=== PATIENT | male | born 1935 | race Caucasian/White ===

== ENCOUNTER 2016-08-28 08:38 | Outpatient (CLI) ==
[2013-04-18 17:10] VITALS: BMI 26.9
[2016-08-28 15:35] LABS: BASOPHILS # (AUTO) 0.1 K/uL (0-0.2); BASOPHILS % (AUTO) 1.3 % (0.0-3.0); EOSINOPHILS # (AUTO) 0.3 K/ul (0.0-0.7); EOSINOPHILS % (AUTO) 5.3 % (0.0-7.0); HEMATOCRIT 47.3 % (42.0-52.0); HEMOGLOBIN 16.1 g/dl (14.0-18.0); IMMATURE GRANULOCYTE % (AUTO) 0.4 % (0.0-5.0); LYMPHOCYTES # (AUTO) 1.8 K/uL (0.60-3.4); LYMPHOCYTES % (AUTO) 34.7 (10.0-50.0); MEAN CORPUSCULAR HEMOGLOBIN 30.3 pg (27.0-31.0); MEAN CORPUSCULAR VOLUME 88.9 fl (80.0-94.0); MONOCYTES # (AUTO) 0.5 K/uL (0.4-2.0); MONOCYTES % (AUTO) 8.9 (0-10); NEUTROPHILS # (AUTO) 2.6 K/ul (2.0-6.9); NEUTROPHILS % (AUTO) 49.4; PLATELET COUNT 253 10^3/uL (140-440); RED BLOOD COUNT 5.32 10^6/ul (4.70-6.10); WHITE BLOOD COUNT 5.27 K/ul (4.2-10.2)
[2016-08-28 15:44] LABS: BILIRUBIN,URINE Negative (NEGATIVE); KETONES,URINE Negative (NEGATIVE); LEUKOCYTE ESTERASE ,URINE Negative (NEGATIVE); NITRITE,URINE Negative (NEGATIVE); PH,URINE 5.5 (5-9); PROTEIN,URINE Negative (NEGATIVE); URINE, BLOOD Trace-lysed (NEGATIVE)
[2016-08-28 16:04] LABS: ADD URINE MICROSCOPIC YES
[2016-08-28 16:09] LABS: ALBUMIN 4.7 g/dL (3.4-5.0); ALBUMIN/GLOBULIN RATIO 1.42; ANION GAP 18.2; BILIRUBIN,TOTAL 0.69 mg/dL (0.00-1.20); BUN/CREATININE RATIO 17.09; CALCIUM 10.1 mg/dL (8.2-10.2); CHOL/HDL RATIO 5.2 (4.5-6.4); CREATININE 1.17 mg/dL (0.60-1.10); POTASSIUM 4.2 mmol/L (3.5-5.1)
== END 2016-08-28 08:39 | disposition home or self-care (01) ==
LOC: LAB 08:38
PROVIDERS: ATTEND General Practice
DX: E03.9 Hypothyroidism, unspecified (principal); I10 Essential (primary) hypertension; Z79.899 Other long term (current) drug therapy
CPT/HCPCS: 36415; 80053; 80061; 81001; 85025

== ENCOUNTER 2016-12-25 11:01 | Outpatient (CLI) ==
[2013-04-18 17:10] VITALS: BMI 26.9
[2016-12-25 12:47] LABS: BASOPHILS # (AUTO) 0.1 K/uL (0-0.2); BASOPHILS % (AUTO) 1.4 % (0.0-3.0); EOSINOPHILS # (AUTO) 0.2 K/ul (0.0-0.7); EOSINOPHILS % (AUTO) 5.6 % (0.0-7.0); HEMATOCRIT 45.3 % (42.0-52.0); HEMOGLOBIN 15.4 g/dl (14.0-18.0); IMMATURE GRANULOCYTE % (AUTO) 0.2 % (0.0-5.0); LYMPHOCYTES # (AUTO) 1.4 K/uL (0.60-3.4); MEAN CORPUSCULAR HEMOGLOBIN 30.5 pg (27.0-31.0); MEAN CORPUSCULAR VOLUME 89.7 fl (80.0-94.0); MONOCYTES # (AUTO) 0.4 K/uL (0.4-2.0); MONOCYTES % (AUTO) 10.3 (0-10); NEUTROPHILS # (AUTO) 2.1 K/ul (2.0-6.9); NEUTROPHILS % (AUTO) 49.5; PLATELET COUNT 220 10^3/uL (140-440); RED BLOOD COUNT 5.05 10^6/ul (4.70-6.10); WHITE BLOOD COUNT 4.27 K/ul (4.2-10.2)
[2016-12-25 13:02] LABS: ADD URINE MICROSCOPIC YES; BILIRUBIN,URINE Negative (NEGATIVE); KETONES,URINE Negative (NEGATIVE); LEUKOCYTE ESTERASE ,URINE Negative (NEGATIVE); NITRITE,URINE Negative (NEGATIVE); PH,URINE 5.5 (5-9); PROTEIN,URINE Negative (NEGATIVE); URINE, BLOOD 2+ (NEGATIVE)
[2016-12-25 13:26] LABS: ALBUMIN 4.4 g/dL (3.4-5.0); ALBUMIN/GLOBULIN RATIO 1.33; ANION GAP 18.7; BILIRUBIN,TOTAL 0.73 mg/dL (0.00-1.20); BUN/CREATININE RATIO 20.35; CALCIUM 10.3 mg/dL (8.2-10.2); CHOL/HDL RATIO 5.5 (4.5-6.4); CREATININE 1.13 mg/dL (0.60-1.10); POTASSIUM 4.7 mmol/L (3.5-5.1); TOTAL PROTEIN 7.7 g/dL (5.8-8.1)
== END 2016-12-25 11:02 | disposition home or self-care (01) ==
LOC: LAB 11:01
PROVIDERS: ATTEND General Practice
DX: E03.9 Hypothyroidism, unspecified (principal); I10 Essential (primary) hypertension; Z79.899 Other long term (current) drug therapy
CPT/HCPCS: 36415; 80053; 80061; 81001; 84443; 85025

== ENCOUNTER 2017-01-01 11:45 | Outpatient (CLI) ==
[2013-04-18 17:10] VITALS: BMI 26.9
[2017-01-01 12:39] LABS: BILIRUBIN,URINE Negative (NEGATIVE); KETONES,URINE Negative (NEGATIVE); LEUKOCYTE ESTERASE ,URINE Negative (NEGATIVE); NITRITE,URINE Negative (NEGATIVE); PH,URINE 5.5 (5-9); PROTEIN,URINE Negative (NEGATIVE); URINE, BLOOD Trace-intact (NEGATIVE)
[2017-01-01 12:46] LABS: ADD URINE MICROSCOPIC YES
== END 2017-01-01 11:46 | disposition home or self-care (01) ==
LOC: LAB 11:45
PROVIDERS: ATTEND General Practice
DX: R31.29 Other microscopic hematuria (principal)
CPT/HCPCS: 81001

== ENCOUNTER 2017-01-02 09:04 | Outpatient (CLI) ==
[2013-04-18 17:10] VITALS: BMI 26.9
--- NOTE | 2017-01-02 09:47 | US ---
EXAM: RENAL ULTRASOUND, BILATERAL HISTORY: Microhematuria FINDINGS: Ultrasound renal, bilateral. Tovar-scale ultrasound and color Doppler imaging was perform ed. The right kidney measures 11.5 x 5.5 x 5.0 centimeters. The left kidney measures 10.4 x 4.9 x 4.5. General renal cortical echogenicity and volume were normal for age. No hydronephrosis was identifie d. No obvious cystic or solid renal cortical masses. Urinary bladder was relatively decompressed a nd therefore not optimally evaluated on this exam. No gross urinary bladder abnormalities. Uretera l jets were not seen during the exam. IMPRESSION: No definite abnormalities or etiology for hematuria. Consider further workup.
== END 2017-01-02 09:05 | disposition home or self-care (01) ==
LOC: RAD 09:04
PROVIDERS: ATTEND General Practice
DX: R31.29 Other microscopic hematuria (principal)
CPT/HCPCS: 76770

== ENCOUNTER 2017-04-28 13:49 | Outpatient (CLI) ==
[2013-04-18 17:10] VITALS: BMI 26.9
[2017-04-28 14:08] LABS: BASOPHILS # (AUTO) 0.1 K/uL (0-0.2); BASOPHILS % (AUTO) 1.1 % (0.0-3.0); EOSINOPHILS # (AUTO) 0.1 K/ul (0.0-0.7); EOSINOPHILS % (AUTO) 2.8 % (0.0-7.0); HEMATOCRIT 44.2 % (42.0-52.0); HEMOGLOBIN 15.1 g/dl (14.0-18.0); IMMATURE GRANULOCYTE % (AUTO) 0.2 % (0.0-5.0); LYMPHOCYTES # (AUTO) 1.3 K/uL (0.60-3.4); LYMPHOCYTES % (AUTO) 28.5 (10.0-50.0); MEAN CORPUSCULAR HEMOGLOBIN 30.4 pg (27.0-31.0); MEAN CORPUSCULAR HGB CONC 34.2 (31.8-35.4); MEAN CORPUSCULAR VOLUME 89.1 fl (80.0-94.0); MONOCYTES # (AUTO) 0.5 K/uL (0.4-2.0); MONOCYTES % (AUTO) 10.4 (0-10); NEUTROPHILS # (AUTO) 2.6 K/ul (2.0-6.9); PLATELET COUNT 234 10^3/uL (140-440); RED BLOOD COUNT 4.96 10^6/ul (4.70-6.10)
[2017-04-28 14:15] LABS: BILIRUBIN,URINE Negative (NEGATIVE); KETONES,URINE Negative (NEGATIVE); LEUKOCYTE ESTERASE ,URINE Negative (NEGATIVE); NITRITE,URINE Negative (NEGATIVE); PH,URINE 5.5 (5-9); PROTEIN,URINE Negative (NEGATIVE); URINE, BLOOD 2+ (NEGATIVE)
[2017-04-28 14:17] LABS: ADD URINE MICROSCOPIC YES
[2017-04-28 14:23] LABS: BACTERIA,URINE TRACE (NOT PRESENT)
[2017-04-28 15:00] LABS: ALBUMIN 4.2 g/dL (3.4-5.0); ALBUMIN/GLOBULIN RATIO 1.35; BILIRUBIN,TOTAL 0.64 mg/dL (0.00-1.20); BUN/CREATININE RATIO 18.62; CALCIUM 9.7 mg/dL (8.2-10.2); CREATININE 1.02 mg/dL (0.60-1.10); TOTAL PROTEIN 7.3 g/dL (5.8-8.1)
== END 2017-04-28 13:50 | disposition home or self-care (01) ==
LOC: LAB 13:49
PROVIDERS: ATTEND General Practice
DX: I10 Essential (primary) hypertension (principal); Z79.899 Other long term (current) drug therapy
CPT/HCPCS: 36415; 80053; 81001; 85025

== ENCOUNTER 2017-05-06 07:07 | Outpatient (CLI) | payer OTHER ==
[2013-04-18 17:10] VITALS: BMI 26.9
--- NOTE | 2017-05-06 09:19 | US ---
EXAM: Renal ultrasound HISTORY: Hematuria, unspecified COMPARISON: None TECHNIQUE: 01/02/2017 FINDINGS: Right kidney measures 6.0 x 4.0 x 10.5 cm. Left kidney measures 5.7 x 3.9 x 10.1 cm. Ming al cortical echogenicity is increased with bilateral renal cortical thinning. No hydronephrosis or r enal calculus large enough to cause acoustic shadowing. Bladder only mildly distended and poorly isabela luated, grossly unremarkable. A right ureteral jet is visualized. No left ureteral jet visualized IMPRESSION: 1. No hydronephrosis. 2. Medical renal disease
== END 2017-05-06 07:08 | disposition home or self-care (01) ==
LOC: RAD 07:07
PROVIDERS: ATTEND General Practice
DX: R31.9 Hematuria, unspecified (principal)
CPT/HCPCS: 76770

== ENCOUNTER 2017-08-27 13:37 | Outpatient (CLI) | payer OTHER ==
[2013-04-18 17:10] VITALS: BMI 26.9
== END 2017-08-27 13:38 | disposition home or self-care (01) ==
LOC: FCC-LAB 13:37
PROVIDERS: ATTEND General Practice
DX: E03.9 Hypothyroidism, unspecified (principal); I10 Essential (primary) hypertension; Z12.5 Encounter for screening for malignant neoplasm of prostate; Z79.899 Other long term (current) drug therapy
CPT/HCPCS: 36415; 80053; 80061; 81001; 84443; 85025

== ENCOUNTER 2017-12-28 09:27 | Outpatient (CLI) ==
[2013-04-18 17:10] VITALS: BMI 26.9
== END 2017-12-28 09:28 | disposition home or self-care (01) ==
LOC: FCC-LAB 09:27
PROVIDERS: ATTEND General Practice
DX: E03.9 Hypothyroidism, unspecified (principal); I10 Essential (primary) hypertension; M15.9 Polyosteoarthritis, unspecified; Z79.899 Other long term (current) drug therapy
CPT/HCPCS: 36415; 80053; 80061; 81001; 85025

== ENCOUNTER 2018-08-30 08:37 | Outpatient (CLI) | payer OTHER ==
[2013-04-18 17:10] VITALS: BMI 26.9
== END 2018-08-30 08:38 | disposition home or self-care (01) ==
LOC: RHC-LAB 08:37
PROVIDERS: ATTEND General Practice
DX: E03.9 Hypothyroidism, unspecified (principal); I10 Essential (primary) hypertension; A69.23 Arthritis due to Lyme disease; M25.569 Pain in unspecified knee; M15.9 Polyosteoarthritis, unspecified; Z79.899 Other long term (current) drug therapy; Z12.5 Encounter for screening for malignant neoplasm of prostate
CPT/HCPCS: 36415; 80053; 80061; 81001; 84550

== ENCOUNTER 2018-09-03 09:41 | Outpatient (CLI) ==
[2013-04-18 17:10] VITALS: BMI 26.9
== END 2018-09-03 09:42 | disposition home or self-care (01) ==
LOC: RHC-LAB 09:41
PROVIDERS: ATTEND General Practice
DX: E03.9 Hypothyroidism, unspecified (principal); I10 Essential (primary) hypertension; A69.23 Arthritis due to Lyme disease; M25.569 Pain in unspecified knee; M15.9 Polyosteoarthritis, unspecified; Z79.899 Other long term (current) drug therapy; Z12.5 Encounter for screening for malignant neoplasm of prostate
CPT/HCPCS: 36415; 85025